=== PATIENT | female | born 1985 | race American Indian/Alaskan Native ===

== ENCOUNTER 2016-05-18 15:21 | Emergency (ER) | payer SELFPAY ==
--- NOTE | 2016-05-18 20:08 | Emergency Department Report ---
HPI - General Chief Complaint: Urogenital-Female Time Seen by Provider: 05/18/16 19:40 - [facility] HPI: Patient is a 31-year-old female presents to ED complaining of urinary frequency urgency and dysuria times month. Patient states dysuria began this past week. Patient states she is unit episodes of urinary frequency and urgency for the past month but thought it was due to her drinking a lot of water. Patient denies fevers/chills/nausea/vomiting/vaginal discharge last vaginal bleeding or irritation. She denies significant medication states her last menstrual period was 05/05/2016 ED Past Medical Hx - Past Medical History Previous Medical History?: No - Surgical History Additional Surgical History: - Social History Smoking Status: Never Smoker Substance Use Type: Alcohol - Medications Home Medications: Home Medications Medication Instructions Recorded Confirmed Last Taken Type Ciprofloxacin HCl [Ciprofloxacin 500 mg PO Q12HR #14 tab 05/18/16 Unknown Rx TAB] Phenazopyridine [Pyridium] 200 mg PO BID #20 tab 05/18/16 Unknown Rx ED Review of Systems ROS: Stated complaint: POSS UTI Other details as noted in HPI Constitutional: denies: chills, fever Eyes: denies: eye pain, eye discharge, vision change ENT: denies: ear pain, throat pain Respiratory: denies: cough, shortness of breath, wheezing Cardiovascular: denies: chest pain, palpitations Endocrine: no symptoms reported Gastrointestinal: denies: abdominal pain, nausea, diarrhea Genitourinary: denies: urgency, dysuria, discharge Musculoskeletal: denies: back pain, joint swelling, arthralgia Skin: denies: rash, lesions Neurological: denies: headache, weakness, paresthesias Psychiatric: denies: anxiety, depression Hematological/Lymphatic: denies: easy bleeding, easy bruising Physical Exam - Physical Exam Vital Signs: Vital Signs 05/18/16 15:53 Temperature 98.6 F Pulse Rate 80 Respiratory 18 Rate Blood Pressure 111/71 O2 Sat by Pulse 100 Oximetry Physical Exam: GENERAL: Alert and oriented x3, no apparent distress, Normal Gait, atraumatic. HEAD: Head is normocephalic and a-traumatic. EYES: Extra ocular muscles are intact. Pupils are equal, round, and reactive to light and accommodation. LUNGS: Symetrical with respiration, No wheezing, no rales or crackles, CTAB. HEART: S1, S2 present, regular rate and rhythm without murmur, no rubs, no gallops. ABDOMEN: No organomegaly was noted,Positive bowel sounds, soft, and non- distended. . Nontender to palpation on all Quadrants, NO CVA tenderness. GENITOURINARY: External genitalia without erythema, exudate or discharge. Vaginal vault is without discharge. Cervix is of normal color without lesion. Cervical os is closed. No bleeding noted. Uterus is noted to be of normal size and nontender. No cervical motion tenderness. No masses are palpated. The adnexa are without masses or tenderness. SKIN: Warm and dry, No lesions, No ulceration or induration present. ED Course Vital Signs 05/18/16 15:53 Temperature 98.6 F Pulse Rate 80 Respiratory 18 Rate Blood Pressure 111/71 O2 Sat by Pulse 100 Oximetry ED Medical Decision Making - Medical Decision Making 31-year-old female presents with a unit tract infection ED course: Urinalysis and urine test ordered. Urinalysis positive for leukocytes, pyuria Discussed findings with patient. Discussed home antibiotic therapy & discussed follow-up with primary care physician. Discuss follow-up with urology symptoms worsens. Discuss Kegel exercises. Patient is in no distress vital signs are stable and normal Critical care attestation.: If time is entered above; I have spent that time in minutes in the direct care of this critically ill patient, excluding procedure time. ED Disposition Clinical Impression: Cystitis UTI (urinary tract infection) Qualifiers: Urinary tract infection type: acute cystitis Hematuria presence: with hematuria Qualified Code(s): N30.01 - Acute cystitis with hematuria Disposition: DISCHARGED TO HOME OR SELFCARE Is pt being admited?: No Does the pt Need Aspirin: No Condition: Stable Instructions: Dysuria (ED), Urinary Tract Infection in Women (ED), Phenazopyridine (By mouth) Prescriptions: Ciprofloxacin HCl [Ciprofloxacin TAB] 500 mg PO Q12HR #14 tab Phenazopyridine [Pyridium] 200 mg PO BID #20 tab Referrals: PRIMARY CARE, [Primary Care Provider] - 3-5 Days LIONEL CORTES MD [Referring] - 3-5 Days JESUS ADAN MD [Referring] - 3-5 Days [facility] [Outside] - 3-5 Days [facility] [Outside] - 3-5 Days [facility] [Outside] - 3-5 Days Forms: Accompanied Note, Work/School Release Form(ED) Time of Disposition: 22:00
[2016-05-18 21:36] LABS: Bilirubin,Urine NEG (Negative); Blood,Urine NEG (Negative); Ketones,Urine 20 mg/dL (Negative); Leukocyte Esterase,Urine TR (Negative); Mucus,Urine 3+ /HPF; Nitrite,Urine NEG (Negative); Urobilinogen,Urine < 2.0 mg/dL (<2.0)
[2016-05-18 21:47] LABS: RBC,Urine > 182.0 /HPF (0.0-6.0)
[2016-05-18 21:52] VITALS: BP 116/76
== END 2016-05-18 22:10 | disposition home or self-care (01) ==
LOC: ED 15:21
DX: N30.01 Acute cystitis with hematuria (principal)
CPT/HCPCS: 81001; 81025; 99283